=== PATIENT | female | born 1945 | race Hispanic/Latino ===

== ENCOUNTER 2018-08-02 10:20 | Emergency (ER) | payer MEDICARE ==
[~2018-08-02] VITALS: Ht 160 cm; Wt 79.6 kg
[2018-08-02] MEDS ORDERED: ATOR1TAB21 PO (10:32)
[2018-08-02] MEDS ORDERED: SYNT75TA PO (10:32)
[2018-08-02] MEDS ORDERED: PRED20TA PO (10:32)
[2018-08-02] MEDS ORDERED: SING10TA32 PO (10:32)
[2018-08-02] MEDS ORDERED: SYMB16INH INH (10:32)
[2018-08-02] MEDS ORDERED: ROBICAP2 PO (10:32)
[2018-08-02] MEDS ORDERED: IPRATROPIUM 0.5MG/ALBUTEROL 2.5MG INH SOL UD 3ML (DUONEB)(J7620) NEB PRN (11:15)
[2018-08-02 11:54] LABS: BASO % 0.4 % (0.0-1.0); EOS % 0.3 % (0.0-3.0); HEMATOCRIT 38.6 % (36.0-47.0); HEMOGLOBIN 12.8 g/dl (12.0-15.5); LYMPH # 1.4 10^3/uL (1.5-4.5); LYMPH % 19.2 % (24.0-44.0); MEAN CORPUSCULAR HGB CONC 33.2 g/dl (32.0-36.5); MEAN CORPUSCULAR VOLUME 87.5 fl (80.0-96.0); MONO # 0.8 10^3/uL (0.0-0.8); MONO % 11.1 % (0.0-5.0); NEUTROPHILS % 67.8 % (36.0-66.0); PLATELET COUNT, AUTOMATED 295 10^3/uL (150-450); RED BLOOD COUNT 4.41 10^6/uL (4.00-5.40); WHITE BLOOD COUNT 7.4 10^3/uL (4.0-10.0)
--- NOTE | 2018-08-02 12:03 | REP ---
REASON: Cough times two weeks. PRIORS: None. There is elevation of the diaphragmatic surface of the right lung, etiology uncertain. The heart is not enlarged and the pleural angles are sharp. Fibrotic changes are seen throughout the lung gan. No patchy opacities are present. The osseous structures are within normal limits for the patient's age. IMPRESSION: Elevation of the diaphragmatic surface of the right lung, etiology uncertain. Contrast enhanced CT chest should be considered since there are no prior plain radiographs for comparison. Electronically Signed by Chadwick Mcintyre DO 08/02/2018 03:22 P
[2018-08-02 12:28] LABS: ALBUMIN 3.7 GM/DL (3.2-5.2); ALT/SGPT 22 U/L (12-78); BILIRUBIN,DIRECT < 0.1 MG/DL (0.0-0.2); BILIRUBIN,TOTAL 0.4 MG/DL (0.2-1.0); BLOOD UREA NITROGEN 19 MG/DL (7-18); CARBON DIOXIDE LEVEL 28 MEQ/L (21-32); CHLORIDE LEVEL 106 MEQ/L (98-107); CPK CREATINE PHOSPHOKINASE 173 U/L (26-192); CREATININE FOR GFR 0.85 MG/DL (0.55-1.30); GLOMERULAR FILTRATION RATE > 60.0 (>39); GLUCOSE, FASTING 83 MG/DL (70-100); LIPASE 190 U/L (73-393); NT-PRO BNP 167 PG/ML (<125); POTASSIUM SERUM 3.8 MEQ/L (3.5-5.1); SODIUM LEVEL 139 MEQ/L (136-145); TOTAL PROTEIN 6.3 GM/DL (6.4-8.2); TROPONIN I < 0.02 NG/ML (< 0.10)
[2018-08-02] MEDS ORDERED: ISOVUE-370 76% 100ML VIAL (Q9967) As Ordered ONE (12:40)
[2018-08-02] MEDS ORDERED: cefTRIAXone SOD 1 GM in D5W MINI-BAG PLUS 50 ML IV ONE (13:30)
--- NOTE | 2018-08-02 14:00 | REP ---
CT ANGIOGRAM CHEST: TECHNIQUE: Axial contrast enhanced images from the thoracic inlet to the upper abdomen using 100 mL Isovue 370 intravenous contrast material with multiplanar reformations. There is no CT evidence of pulmonary embolism. There is no thoracic aortic aneurysm or dissection. The heart is normal in size. There is no pleural or pericardial effusion. There are a few calcified subcarinal lymph nodes. No pathologically enlarged mediastinal, hilar, or axillary lymph nodes are seen. There is elevation of the right hemidiaphragm. Bronchiectasis is seen bilaterally with scattered fibroatelectatic change. A few calcified granulomas are seen bilaterally. Patchy left lower lobe infiltrate in the left lower lobe is most consistent with pneumonia. There are moderate degenerative changes of the spine. IMPRESSION: No CT evidence of pulmonary embolism. Patchy infiltrate left lower lobe most consistent with pneumonia. Electronically Signed by Javi Yu MD 08/02/2018 04:07 P
[2018-08-02] MEDS ORDERED: ZITHTAB PO (14:11)
[2018-08-02] MEDS ORDERED: TESS100C PO (14:11)
[2018-08-02 14:18] VITALS: BP 140/70
--- NOTE | 2018-08-02 20:32 | ECGEPIP ---
Stationary ECG Study [facility] - ED Test Date: 2018-08-02 Pat Name: REED MCCALL Department: Room: - Gender: F Ent Nurse: : 1945 Requested By: ALLAN Seals PA-C Order Number: [id number] Reading MD: Amalia Glasgow Measurements Intervals [place] Rate: 85 P: 45 GA: 153 QRS: 7 QRSD: 85 T: 15 QT: 355 QTc: 423 Interpretive Statements SINUS RHYTHM NSTTW ABNORMALITY NO PRIOR FOR COMPARISON Electronically Signed On 08-02-2018 20:32:41 EDT by Amalia Glasgow
== END 2018-08-02 14:24 | disposition home or self-care (01) ==
LOC: M ED 10:20
DX: J18.9 Pneumonia, unspecified organism (principal); J45.909 Unspecified asthma, uncomplicated; E03.9 Hypothyroidism, unspecified; E78.5 Hyperlipidemia, unspecified; M79.7 Fibromyalgia; Z79.899 Other long term (current) drug therapy; Z79.890 Hormone replacement therapy; Z88.8 Allergy status to other drugs, medicaments and biological substances
CPT/HCPCS: 71046; 71275; 80048; 80076; 82550; 82553; 83690; 83880; 84484; 85025; 93005; 94640; 96365; 99284; J0696; Q9967

== ENCOUNTER 2019-04-27 11:55 | Emergency (ER) | payer MEDICARE ==
[~2019-04-27] VITALS: Ht 160 cm; Wt 78.4 kg
[~2019-04-27 11:55] MED LIST: ATOR1TAB21 PO; PRED20TA PO; ROBICAP2 PO; SING10TA32 PO; SYMB16INH INH; SYNT75TA PO; TESS100C PO; ZITHTAB PO
[2019-04-27 11:56] VITALS: BP 158/74
[2019-04-27] MEDS ORDERED: PRAV20TA2 (12:03)
[2019-04-27] MEDS ORDERED: VITA100054 PO (12:03)
[2019-04-27] MEDS ORDERED: ALLE60TA69 PO (12:03)
[2019-04-27] MEDS ORDERED: LINZ72CA (12:03)
[2019-04-27] MEDS ORDERED: NAPR-837 PO (14:26)
[2019-04-27] MEDS ORDERED: METH1TAB40 PO (14:26)
[2019-04-27] MEDS ORDERED: ALB2.5NEB NEB (14:26)
--- NOTE | 2019-04-27 15:02 | REP ---
CHEST TWO VIEWS: Two views of the chest are performed and compared to a prior study of 08/02/2018. There is again moderate elevation of the right hemidiaphragm. There is a poor degree of inspiration. There is bibasilar atelectatic change. No consolidating infiltrate is seen. The heart is not enlarged. Mediastinal silhouette is unchanged. There are degenerative changes of the spine. IMPRESSION: Poor ventilation. Bibasilar atelectatic change with no consolidating infiltrate. Electronically Signed by Javi Yu MD 04/27/2019 03:40 P
== END 2019-04-27 14:35 | disposition home or self-care (01) ==
LOC: M ED 11:55
DX: Z76.0 Encounter for issue of repeat prescription (principal); M62.830 Muscle spasm of back; J45.909 Unspecified asthma, uncomplicated; M06.9 Rheumatoid arthritis, unspecified; Z79.899 Other long term (current) drug therapy; Z88.8 Allergy status to other drugs, medicaments and biological substances

== ENCOUNTER → 2019-06-12 | Outpatient (REF) | payer MEDICARE ==
[~2019-06-12] MED LIST changes: +ALB2.5NEB NEB; +ALLE60TA69 PO; +LINZ72CA; +METH1TAB40 PO; +NAPR-837 PO; +PRAV20TA2; +VITA100054 PO
== END ==
LOC: M LAB REF 17:26
PROVIDERS: ATTEND Internal Medicine Pulmonary Disease
DX: R05 Cough (principal)
CPT/HCPCS: 87486; 87581; 87633; 87798; U0002

== ENCOUNTER 2019-06-20 15:01 | Emergency (ER) | payer MEDICARE ==
[~2019-06-20] VITALS: Ht 160 cm; Wt 80.0 kg
[2019-06-20] MEDS ORDERED: BUDE2SUS3 INH (15:27)
[2019-06-20 15:54] LABS: BASO % 0.4 % (0.0-1.0); EOS # 0.1 10^3/uL (0.0-0.5); EOS % 1.7 % (0.0-3.0); HEMOGLOBIN 12.7 g/dl (12.0-15.5); LYMPH # 1.4 10^3/uL (1.5-5.0); LYMPH % 29.7 % (24.0-44.0); MEAN CORPUSCULAR HEMOGLOBIN 28.5 pg (27.0-33.0); MEAN CORPUSCULAR HGB CONC 32.6 g/dl (32.0-36.5); MEAN CORPUSCULAR VOLUME 87.4 fl (80.0-96.0); MONO # 0.3 10^3/uL (0.0-0.8); NEUTROPHILS # 2.9 10^3/uL (1.5-8.5); NEUTROPHILS % 60.8 % (36.0-66.0); PLATELET COUNT, AUTOMATED 266 10^3/uL (150-450); RED BLOOD COUNT 4.46 10^6/uL (4.00-5.40); WHITE BLOOD COUNT 4.7 10^3/uL (4.0-10.0)
[2019-06-20] MEDS ORDERED: IPRATROPIUM 0.5MG/ALBUTEROL 2.5MG INH SOL UD 3ML (DUONEB)(J7620) NEB ONE (16:00)
[2019-06-20 16:16] LABS: BLOOD UREA NITROGEN 14 MG/DL (7-18); CALCIUM LEVEL 8.9 MG/DL (8.8-10.2); CARBON DIOXIDE LEVEL 32 MEQ/L (21-32); CHLORIDE LEVEL 107 MEQ/L (98-107); CREATININE FOR GFR 0.66 MG/DL (0.55-1.30); GLOMERULAR FILTRATION RATE > 60.0 (>39); GLUCOSE, FASTING 97 MG/DL (70-100); POTASSIUM SERUM 3.9 MEQ/L (3.5-5.1); SODIUM LEVEL 142 MEQ/L (136-145)
--- NOTE | 2019-06-20 16:28 | REP ---
Clinical: Acute asthma . Comparison: 04/27/2019 . Technique: PA and lateral. Findings: The mediastinum and cardiac silhouette are normal. Stable elevation to the right hemidiaphragm again noted and unchanged when compared to CT dated 08/02/2018. The lung gan are clear and without acute consolidation, effusion, or pneumothorax. The skeletal structures are intact and normal. Impression: 1. No focal consolidation or effusion. Electronically Signed by Alonso Vasquez MD 06/20/2019 04:19 P
[2019-06-20 17:00] VITALS: BP 180/87
[2019-06-20] MEDS ORDERED: PRED20TA PO (17:00)
== END 2019-06-20 17:16 | disposition home or self-care (01) ==
LOC: EDBD 15:01 → M ED 15:01
DX: J45.909 Unspecified asthma, uncomplicated (principal); R05 Cough; E78.5 Hyperlipidemia, unspecified; E07.9 Disorder of thyroid, unspecified; M79.7 Fibromyalgia; Z20.828 Contact with and (suspected) exposure to other viral communicable diseases; Z88.8 Allergy status to other drugs, medicaments and biological substances; Z79.899 Other long term (current) drug therapy; Z79.1 Long term (current) use of non-steroidal anti-inflammatories (NSAID); Z79.51 Long term (current) use of inhaled steroids

== ENCOUNTER → 2019-06-22 | Outpatient (CLI) | payer MEDICARE ==
[~2019-06-22] MED LIST changes: +BUDE2SUS3 INH
== END ==
LOC: M LABSMTC 12:13
PROVIDERS: ATTEND Family Medicine
DX: Z11.59 Encounter for screening for other viral diseases (principal); Z20.818 Contact with and (suspected) exposure to other bacterial communicable diseases
CPT/HCPCS: 87502; U0002

== ENCOUNTER → 2019-07-04 | Outpatient (CLI) | payer MEDICARE ==
--- NOTE | 2019-07-04 11:49 | REP ---
REASON: Followup patchy opacity left lower lobe. COMPARISON: CT 08/02/2018 Prior plain film examination of the chest 06/20/2019 was also reviewed at this time. The mediastinum and pulmonary david are essentially unchanged and again seen to be within normal limits. There are no pleural or pericardial effusions. The imaged upper abdomen and imaged osseous structures are essentially unchanged and again seen to be within normal limits. Evaluation of the lung gan shows complete resolution of the previously present patchy opacity in the left lower lobe. There are no new abnormal nodules, masses, or opacities. There is cylindrical bronchiectasis status quo. IMPRESSION: Improved findings as described above. There is no evidence of acute disease. Electronically Signed by Chadwick Mcintyre DO 07/04/2019 01:37 P
== END ==
LOC: M RAD 10:42
PROVIDERS: ATTEND Internal Medicine Pulmonary Disease
DX: R91.8 Other nonspecific abnormal finding of lung field (principal)

== ENCOUNTER → 2019-07-27 | Outpatient (CLI) | payer MEDICARE ==
[2019-08-01 09:51] LABS: ANCA-ATYPICAL <1:20 titer (Neg:<1:20); ANTI DS-DNA AB Negative (Negative); ANTINUCLEAR ANTIBODIES DIRECT Negative (Negative); ASPERGILLUS FLAVUS ABY Negative (Neg:<1:1); ASPERGILLUS FUMIGATUS ABY Negative (Neg:<1:1); ASPERGILLUS NIGER ABY Negative (Neg:<1:1); BLASTOMYCES ANTIBODY LEVEL Negative (Neg:<1:1); CRYPTOCOCCUS ANTIBODY SERUM Negative (Neg:<1:2); CYTOPLASMIC NEUTROP AB ANCA-C <1:20 titer (Neg:<1:20); HISTOPLASMOSIS ANTIBODY Negative (Neg:<1:1); PERINUCLEAR AB ANCA-P <1:20 titer (Neg:<1:20); RNP ANTIBODIES <0.2 AI (0.0-0.9); SJOGREN'S ANTI SS-A <0.2 AI (0.0-0.9); SJOGREN'S ANTI SS-B <0.2 AI (0.0-0.9); SMITH ANTIBODIES <0.2 AI (0.0-0.9)
== END ==
LOC: M LAB 12:49
PROVIDERS: ATTEND Internal Medicine Pulmonary Disease
DX: J47.9 Bronchiectasis, uncomplicated (principal)

== ENCOUNTER → 2019-08-07 | Outpatient (CLI) | payer MEDICARE ==
--- NOTE | 2019-08-07 14:30 | REP ---
CHEST, TWO VIEWS: Two views of the chest performed and compared to a prior study of 06/20/2019. No acute infiltrate is seen. There is moderate elevation of the right hemidiaphragm unchanged. There is mild linear fibroatelectasis in each lung base. The heart is normal in size. The mediastinal silhouette is unchanged. There are degenerative changes of the spine. IMPRESSION: Stable chronic findings without evidence of acute pulmonary disease. Electronically Signed by Javi Yu MD 08/07/2019 03:37 P
--- NOTE | 2019-08-07 14:45 | REP ---
VENTILATION-PERFUSION LUNG SCAN: HISTORY: Abnormal pulmonary function tests. Comparison chest x-ray August 07, 2019. TECHNIQUE: 1.0 mCi of technetium-99m DTPA aerosol is utilized for the ventilation study and is followed by a 5.4 mCi intravenous dose of technetium-99m MAA for the perfusion exam. A series of eight planar images are acquired for each portion of the study. SCINTIGRAPHIC FINDINGS: There is homogeneous perfusion uptake bilaterally. There is a matched ventilation-perfusion defect in the right base corresponding to the elevated right hemidiaphragm seen radiographically. No other V/Q defects are seen. IMPRESSION: Low probability scan for pulmonary embolus. Electronically Signed by Chance Mccall MD 08/07/2019 03:49 P
== END ==
LOC: M RAD 13:13
PROVIDERS: ATTEND Internal Medicine Pulmonary Disease
DX: R94.2 Abnormal results of pulmonary function studies (principal)
CPT/HCPCS: 71046; 78582; A9540; A9567

== ENCOUNTER → 2020-02-07 | Outpatient (CLI) | payer SELFPAY | LOC: M LABSMTC 12:52 | PROVIDERS: ATTEND Pediatrics | DX: Z20.828 Contact with and (suspected) exposure to other viral communicable diseases (principal) ==

== ENCOUNTER → 2020-02-19 | Outpatient (REF) | payer MEDICARE | LOC: M LAB REF 16:17 | PROVIDERS: ATTEND Internal Medicine | DX: R30.0 Dysuria (principal); R35.0 Frequency of micturition ==

== ENCOUNTER → 2020-06-04 | Outpatient (REF) | payer MEDICARE ==
[~2020-06-04] MED LIST changes: +METH-1164 PO; -METH1TAB40 PO
== END ==
LOC: M LAB REF 19:31
PROVIDERS: ATTEND Physician Assistant
DX: R30.0 Dysuria (principal)

== ENCOUNTER → 2020-08-15 | Outpatient (REF) | payer MEDICARE | LOC: M LAB REF 16:32 | PROVIDERS: ATTEND Internal Medicine | DX: R74.8 Abnormal levels of other serum enzymes (principal); K74.3 Primary biliary cirrhosis ==